=== PATIENT | male | born 1980 | race Caucasian/White ===

== ENCOUNTER 2019-12-25 10:37 | Emergency (ER) | payer OTHER, SELFPAY ==
--- NOTE | ~2019-12-25 | CT_ITS ---
EXAMINATION: CT brain wo con DATE: 12/25/2019 11:53 INDICATION: Right-sided facial paralysis TECHNIQUE: Computed tomography (CT) of the head was performed without intravenous contrast. Sagittal and coronal reconstructions were performed. The mA was adjusted according to patient size. Iterative reconstruction technique was employed. The dose-length product was 605.33 mGy-cm. COMPARISON: None FINDINGS: No acute intracranial hemorrhage, acute infarction or abnormal extra axial fluid collection. Ventricl es are normal and symmetric. No mass/mass effect. Mild mucosal thickening in the in the left sphenoid sinus. The orbits and mastoid air cells are normal. IMPRESSION: 1. No acute intracranial process. Reviewed, dictated and finalized at location A.
[2019-12-25 10:39] VITALS: BP 155/96; PULSE 100; RESP 17; TEMP 36.6; O2SAT 100
--- NOTE | 2019-12-25 11:25 | ECG_ITS ---
Measurements Intervals [place] Rate: 96 P: 67 AK: 149 QRS: 33 QRSD: 109 T: 63 QT: 358 QTc: 453 Interpretive Statements SINUS RHYTHM BASELINE ARTIFACT- III, AVL NORMAL ECG Electronically Signed On 12-25-2019 13:44:34 CDT by Albert Lowe D.O.
--- NOTE | 2019-12-25 11:29 | ED.NEUROSD ---
HPI - Neuro Symptoms/Deficit General Chief Complaint: Neuro Symptoms/Deficit <AYDEN Levin Last Filed: 12/25/19 12:47> Stated Complaint: neuro <AYDEN Levin Last Filed: 12/25/19 12:47> Time Seen by Provider: 12/25/19 11:11 <AYDEN Levin Last Filed: 12/25/19 12:47> Source: patient <AYDEN Levin Last Filed: 12/25/19 12:47> Mode of arrival: ambulatory <AYDEN Levin Last Filed: 12/25/19 12:47> Limitations: no limitations <AYDEN Levin Last Filed: 12/25/19 12:47> History of Present Illness HPI Narrative: This is a 39 year old male that presents to the ER for right sided facial paralysis that started yesterday. Reports one week ago he started to have right sided headaches and ear pain. Reports he started to note some swelling and discharge from the right ear. He was seen at the urgent care for this and started on antibiotics for cellulitis. Reports yesterday he started to note facial numbness and weakness on the right. Also reports some blisters on the right side of his tongue. Reports decreased sense of taste. Denies fever, vision changes, vomiting, or other numbness or weakness. <AYDEN Levin Last Filed: 12/25/19 12:47> Related Data Allergies/Adverse Reactions: Allergies Allergy/AdvReac Type Severity Reaction Status Date / Time No Known Allergies Allergy Verified 12/25/19 10:45 <AYDEN Levin Last Filed: 12/25/19 12:47> Review of Systems Review of Systems: Narrative: CONSTITUTIONAL: Denies fever EYES: Denies visual changes, redness, or discharge. ENT: Reports otalgia. Denies sore throat SKIN: Reports rash NEUROLOGIC: Reports headache, numbness, and weakness. <AYDEN Levin Last Filed: 12/25/19 12:47> All systems reviewed & are unremarkable except as noted in HPI and below <AYDEN Levin Filed: 12/25/19 12:47> [facility] Past Medical History Medical History: Medical History (Updated 12/25/19 @ 12:43 by Lizet Braun PA-C) History of seasonal allergies <Lizet Braun PA-C - Last Filed: 12/25/19 12:47> Social History Social History: Social History (Updated 12/25/19 @ 11:29 by Lizet Braun PA-C) Smoking status: Never smoker Substance use: never Gender identity (if verbalized by the patient): Male <Lizet Braun PA-C - Last Filed: 12/25/19 12:47> Exam Narrative: Exam Narrative: GENERAL: Well-appearing, well-nourished, and in no acute distress. HEAD: Normocephalic, atraumatic. EYES: PERRLA and EOMI. ENT: Nares clear, no rhinorrhea or epistaxis. Mucous membranes moist. Oropharynx without tonsillar hypertrophy exudate or other lesions. Bilateral TMs pearly carrion non-bulging. Right outer ear with blistering lesions CHEST: Airway patent HEART: Regular rate and rhythm EXTREMITIES: Normal range of motion. No edema. Strength equal in bilateral upper and lower extremities SKIN: Warm, dry. Right side of tongue with a few small vesicles NEURO: Alert and oriented x3. Right sided facial paralysis involving the forehead muscles. Normal finger to nose PSYCH: Normal mood and affect <Lizet Braun PA-C - Last Filed: 12/25/19 12:47> Course MACHINIST BRAKE/PA Physician Supervision Attestation for Lizet Braun at 1243. We discussed the case, I went to see the patient [id number] at 1240. He appears to have some excoriation in the pinna of his right ear. He cannot lift his right eyebrow closes right eye or smile with his right face. This is consistent with Blevins's palsy. He is heard of it before and looked it up on the computer last night. I told him that steroid use was controversial but we did send him home on some steroids. He does not have a PCP and we will recommend that he follow-up with Dr. Talbert who is on-call.Karen Chang <Karen Chang MD - Last Filed: 12/25/19 18:54> Vital Signs Vital signs: Vital Signs Temperature 97.9 F 12/25/19 10
[2019-12-25 11:43] LABS: Basophils Absolute Auto 0.1 K/mm3 (0.0-0.1); Basophils Percent Auto 1.3 % (0.2-1.2); Eosinophils Absolute Auto 0.1 K/mm3 (0-0.3); Hematocrit 45.2 % (42.0-52.0); Hemoglobin 15.3 g/dL (14.0-18.0); Lymphocytes Absolute Auto 1.11 K/mm3 (0.9-3.2); Lymphocytes Percent Auto 24.6 % (18.3-44.2); Mean Corpuscular HGB Conc 33.8 g/dl (32-36); Mean Corpuscular Hemoglobin 30.4 pg (26-34); Mean Corpuscular Volume 89.9 fl (80-100); Mean Platelet Volume 10.6 fl (7.4-10.4); Monocytes Absolute Auto 0.6 K/mm3 (0.1-0.6); Monocytes Percent Auto 13.1 % (2.6-8.5); Neutrophils Absolute Auto 2.7 K/mm3 (1.3-6.7); Platelet Count Result 186 k/mm3 (150-375); Red Blood Count 5.03 M/mm3 (4.6-6.20); Red Cell Distribution Width 12.2 % (11.5-14.5); White Blood Count 4.5 K/mm3 (4.5-10.0)
[2019-12-25 11:51] VITALS: BP 131/83; PULSE 84; RESP 18; O2SAT 99
[2019-12-25 11:53] LABS: Prothrombin Time 12.6 Seconds (11.1-14.7)
[2019-12-25 11:54] LABS: Partial Thromboplastin Time 25.9 SECONDS (22.3-36.8)
[2019-12-25 11:57] LABS: Blood Urea Nitrogen 14 mg/dL (9-20); Calcium 9.1 mg/dL (8.4-10.2); Carbon Dioxide 28 mmol/L (22-30); Chloride 104 mmol/L (98-107); Estimated Glomerular Filt Rate > 60; Glucose 105 mg/dL (75-110); Potassium 4.1 mmol/L (3.4-5.0); Sodium 139 mmol/L (137-145)
[2019-12-25 12:09] LABS: Troponin I < 0.012 ng/mL (0.000-0.034)
[2019-12-25] MEDS: VALACYCLOVIR HCL 500 MG TABLET 1000 MG PO (12:16)
[2019-12-25] MEDS: predniSONE 20 MG TABLET 60 MG PO (12:16)
[2019-12-25 12:59] VITALS: BP 132/78; PULSE 78; RESP 20; O2SAT 99
== END 2019-12-25 13:00 | disposition home or self-care (01) ==
PROVIDERS: Physician Assistant; Emergency Provider Emergency Medicine
DX: B02.9 Zoster without complications (principal); I45.10 Unspecified right bundle-branch block
CPT/HCPCS: 36415; 70450; 80048; 84484; 85025; 85610; 85730; 93005; 96365; 99284; A9270; J0131; J7512